=== PATIENT | male | born 1960 | race Caucasian/White ===

== ENCOUNTER 2018-08-25 15:27 | Emergency (ER) | payer MEDICAID ==
[~2018-08-25] VITALS: Ht 172.7 cm; Wt 81.6 kg
--- NOTE | 2018-08-25 15:39 | NUR ---
PT [facility]ORES FROM [facility] C/O FEELING SUICIDAL; PT AAOX4, RESPIRATIONS EVEN AND UNLABORED, +SI, NO PLAN, PT ON MONITOR, SUICIDAL PRECAUTIONS STARTED, VSS, PENDING ER PROBIDER EVAL
[2018-08-25 15:58] LABS: BASOPHILS % (AUTO) 0.8 % (0.0-2.0); EOSINOPHILS % (AUTO) 9.7 % (0.0-6.0); HEMATOCRIT 43 % (39-51); HEMOGLOBIN 14.8 g/dL (13.5-17.5); LYMPHOCYTES # (AUTO) 1.3 /CMM (0.8-4.8); LYMPHOCYTES % (AUTO) 27.4 % (20.0-44.0); MEAN CORPUSCULAR HGB CONC 35 g/dl (31.0-36.0); MEAN CORPUSCULAR VOLUME 92 fL (80-96); MONOCYTES # (AUTO) 0.4 /CMM (0.1-1.30); MONOCYTES % (AUTO) 9.2 % (2.0-12.0); NEUTROPHILS # (AUTO) 2.5 /CMM (1.8-8.9); NEUTROPHILS % (AUTO) 52.9 % (43.0-81.0); PLATELET COUNT (AUTO) 207 /CMM (150-450); RED BLOOD CELL COUNT(AUTO) 4.67 MIL/uL (4.5-6.0); WHITE BLOOD COUNT (AUTO) 4.7 K/uL (4.3-11.0)
[2018-08-25 16:11] LABS: CALCIUM, SERUM 8.7 mg/dL (8.5-10.1); CARBON DIOXIDE 28 mmol/L (21-32); CHLORIDE 104 mmol/L (98-107); GLUCOSE 123 mg/dL (74-106); SODIUM SERUM 137 mmol/L (136-145); UREA NITROGEN, BLOOD 16 mg/dL (7-18)
[2018-08-25 16:16] LABS: ALANINE AMINOTRANSFERASE 52 U/L (12-78); ALBUMIN 3.6 g/dL (3.4-5.0); ALCOHOL, BLOOD < 3 mg/dL (0-0); ALKALINE PHOSPHATASE 92 U/L (46-116); ASPARTATE AMINOTRANSFERASE 22 U/L (15-37); BILIRUBIN,TOTAL 0.2 mg/dL (0.2-1.0); TOTAL PROTEIN, SERUM 7.4 g/dL (6.4-8.2)
[2018-08-25 16:17] LABS: ACETAMINOPHEN < 2 ug/ml (10-30); SALICYLATE < 2.8 mg/dL (2.8-20.0)
--- NOTE | 2018-08-25 16:48 | NUR ---
URINE COLLECTED AND SENT TO LAB
[2018-08-25 17:05] LABS: APPEARANCE,URINE Clear (CLEAR); BILIRUBIN,URINE Negative (NEGATIVE); BLOOD, URINE Negative Ery/uL (NEGATIVE); COLOR,URINE Yellow (YELLOW); KETONES,URINE Negative (NEGATIVE); LEUKOCYTE ESTERASE ,URINE Negative (NEGATIVE); NITRITE, URINE Negative (NEGATIVE); PROTEIN,URINE Negative (NEGATIVE); UGLUCOSE Negative (NEGATIVE); UROBILINOGEN,URINE 0.2 EU/dL (0.2)
--- NOTE | 2018-08-25 17:25 | NUR ---
CALLED [facility] MANUELA GIRALDO 1HR
--- NOTE | 2018-08-25 20:38 | NUR ---
CALLED [facility] FOR TRANSPORT ETA OF 1935 WAS GIVEN. TRIP#[id number]
--- NOTE | 2018-08-25 20:41 | NUR ---
PATIENT WILL BE TRANSFERED TO [facility] [place] NUMBER TO CALL REPORT ADMITTING DX: MAJOR DEPRESSION
--- NOTE | 2018-08-25 21:16 | NUR ---
REPORT GIVEN TO STOPPER GRINDERJOHNNIE BETANCUR AT [facility] FOR [facility]. PT BEING TRANSFERRED BY EMS WITH NO S/S OF ACUTE DISTRESS NOTED.
--- NOTE | 2018-08-25 21:17 | NUR ---
Patient Tranfers to outside Facility Location:[facility]
[2018-08-25 21:19] VITALS: BP 119/76
== END 2018-08-25 21:20 ==
LOC: ER 15:28
DX: R45.851 Suicidal ideations (principal); F20.9 Schizophrenia, unspecified; R56.9 Unspecified convulsions; F32.9 Major depressive disorder, single episode, unspecified; Z60.2 Problems related to living alone
CPT/HCPCS: 36415; 80048; 80076; 80305; 80307; 80329; 81001; 85025; 99285; A4606; G0480; Z7610; 81000-TC